=== PATIENT | male | born 1990 | race Caucasian/White ===

== ENCOUNTER 2023-11-16 21:00 | Emergency (ER) | payer SELFPAY ==
[2023-11-16 21:03] VITALS: BP 146/81
--- NOTE | 2023-11-16 21:48 | ED.MUSCINJ ---
HPI-Injury
General
Chief Complaint: Musculo-Skeletal Complaint
Source: patient
Exam Limitations: none
Time Seen by Provider: 11/16/23 21:42
Nursing documentation reviewed up to this point in time: agreed with
Travel History
Have you had any contact with someone who has COVID-19?: No
Do you have any symptoms of coronavirus? Fever > 100 degrees, chills, cough, shortness of breath, sore throat, loss of taste or smell, muscle aches, or headache?: No
History of Present Illness-Injury
Is this injury a work related problem?: Yes
Is pt an associate of [facility]?: No
Initial Injury comments:
Patient states he slipped and fell. Hit right axilla on bread rack and then fell to ground. Sustained contusion to right axilla, complains of pain to right wrist. Injury occurred just [employer]
Past History
Past History
ED Past Medical History: None
ED Past Surgical History: None
Review of Systems
Review of Systems
Allergies reviewed?: Yes
All Other Systems: ROS reviewed and negative except as documented in HPI and ROS
Constitutional: Reports no symptoms
Musculoskeletal: Reports joint pain (pain to right wrist)
Skin: Reports no symptoms (contusion right axilla)
Neurological: Reports no symptoms
Psychiatric: Reports no symptoms
Musculoskeletal Injury Exam
Musculoskeletal Injury Exam
Right Wrist:
Pain with Movement?: Moderate
Tender to palpation?: Moderate
Soft tissue swelling?: None
External deformity and angulation?: None
Joint effusion?: None
Contusion?: None
Hematoma-local bleeding into tissue?: None
Strain- Sprain- Tear (Connective tissue injury)?: Moderate
Crepitus with movement?: No
Joint instability?: No
Malalignment/deformity?: No
Range of motion: Limited
Distal skin color and temperature: normal-warm & good color
Capillary Refill: normal
Normal distal neurovascular exam?: Yes
Peripheral Pulses: radial (right): 3+
Phy Exam
General Physical Exam
General Presentation: well appearing and no apparent distress
General age: appears stated age
General Skin: warm and dry
General Habitus: normal
General Mental: alert
General Hydration: appears well hydrated
Musculoskeletal Exam
Musculoskeletal Exam: full ROM and neuro vasc intact
Skin Exam
Skin Exam: normal color, warm/dry and no rash
Psychiatric Exam
Psychiatric Exam: normal mood/affect
Injury Course
Orders/Labs/Results
Orders:
Orders
11/16/23 21:07
CR Wrist - Right Min 3 Views Urgent
Comment:
Reason For Exam: injury
11/16/23 21:45
Wray Wrist Right-Tx ONCE
*Radiology
Radiology exam reviewed: radiology read reviewed
*Pulse Oximetry
Patient hypoxic: no
*Critical Care Note
Total Time (30-74mins, 75-104mins- exclusive of procedures): Not Applicable
ED Attending Note
-
Portions of this chart may have been created with voice recognition software.� Occasional wrong word or��sound alike� substitutions may have occurred due to the inherent limitations of voice recognition software.
Discharge Plan
Departure
Patient Disposition: Home (Routine Discharge)
Date of Disposition: 11/16/23
Time of Disposition: 21:47
Patient with high blood pressure during this ER visit?: No
Condition: Good
Covid-19: Not Applicable
Discharge Problem:
Contusion of axillary region, Sprain of wrist
Instructions: Contusion (DC), Sprain (DC), Ibuprofen, Using Cold for Pain
Activity Restrictions/Additional Instructions:
Follow up with your workman's comp provider in the AM
Interventions
Interventions:
*Risk Screen - Suicide Last Done: 11/16/23 21:03
*General Assessment Last Done: 11/16/23 21:03
*Neglect/Abuse Screening Last Done: 11/16/23 21:03
Discharge Date and Time
Print Language: MALTESE
[2023-11-16 22:16] VITALS: BP 125/81
== END 2023-11-16 22:30 | disposition home or self-care (01) ==
LOC: EMR 21:00
PROVIDERS: EMERGENCY PHYSICIAN Emergency Medicine
DX: S63.501A Unspecified sprain of right wrist, initial encounter (principal); S40.021A Contusion of right upper arm, initial encounter; W01.198A Fall on same level from slipping, tripping and stumbling with subsequent striking against other object, initial encounter; Y93.89 Activity, other specified; Y92.89 Other specified places as the place of occurrence of the external cause; Y99.0 Civilian activity done for income or pay; E11.9 Type 2 diabetes mellitus without complications; E78.00 Pure hypercholesterolemia, unspecified
CPT/HCPCS: 99283; 29125; 73110